=== PATIENT | male | born 1940 | race Caucasian/White ===

== ENCOUNTER → 2023-07-01 08:22 | Outpatient (REF) | payer OTHER, SELFPAY | LOC: RAD 08:22 | PROVIDERS: ATTENDING PHYSICIAN Psychiatry & Neurology Neurology; FAMILY PHYSICIAN Student in an Organized Health Care Education/Training Program | DX: G11.8 Other hereditary ataxias (principal) | CPT/HCPCS: 74230; 92611 ==

== ENCOUNTER → 2023-08-14 08:22 | Outpatient (REF) | payer OTHER, SELFPAY | LOC: RCS 08:22 | PROVIDERS: ATTENDING PHYSICIAN Internal Medicine Cardiovascular Disease; FAMILY PHYSICIAN Student in an Organized Health Care Education/Training Program | DX: R06.02 Shortness of breath (principal) | CPT/HCPCS: 93306 ==

== ENCOUNTER → 2024-03-19 12:36 | Outpatient (REF) | payer OTHER, SELFPAY | LOC: RAD 12:36 | PROVIDERS: ATTENDING PHYSICIAN Family Medicine; FAMILY PHYSICIAN Emergency Medicine | DX: R05.9 Cough, unspecified (principal) | CPT/HCPCS: 71046 ==

== ENCOUNTER → 2024-09-29 08:26 | Outpatient (REF) | payer OTHER, SELFPAY | LOC: RST 08:26 | PROVIDERS: ATTENDING PHYSICIAN Nurse Practitioner Family; FAMILY PHYSICIAN Emergency Medicine | DX: G11.8 Other hereditary ataxias (principal) | CPT/HCPCS: 74230; 92611 ==